=== PATIENT | female | born 1995 | race Asian ===

== ENCOUNTER → 2018-07-30 | Outpatient (REF) | payer OTHER | LOC: M SFHCLERA 17:38 | PROVIDERS: ATTEND Nurse Practitioner Family | DX: R53.81 Other malaise (principal) ==

== ENCOUNTER 2018-11-07 10:56 | Emergency (ER) | payer OTHER ==
[~2018-11-07] VITALS: Ht 152.4 cm; Wt 51.4 kg
[2018-11-07] MEDS ORDERED: PRENTAB53 PO (11:01)
[2018-11-07] MEDS ORDERED: PROAAER10 INH (11:03)
[2018-11-07 12:32] LABS: BASO # 0.1 10^3/uL (0.0-0.2); BASO % 0.5 % (0.0-1.0); EOS # 0.5 10^3/uL (0.0-0.50); HEMATOCRIT 34.2 % (36.0-47.0); HEMOGLOBIN 11.3 g/dl (12.0-15.5); LYMPH # 1.7 10^3/uL (1.5-6.5); LYMPH % 15.3 % (24.0-44.0); MEAN CORPUSCULAR HEMOGLOBIN 26.2 pg (27.0-33.0); MEAN CORPUSCULAR VOLUME 79.4 fl (80.0-96.0); MONO # 0.9 10^3/uL (0.0-0.8); MONO % 7.8 % (0.0-5.0); NEUTROPHILS # 7.7 10^3/uL (1.8-7.7); NEUTROPHILS % 70.9 % (36.0-66.0); PLATELET COUNT, AUTOMATED 227 10^3/uL (150-450); RED BLOOD COUNT 4.31 10^6/uL (4.00-5.40); WHITE BLOOD COUNT 10.9 10^3/uL (4.0-10.0)
[2018-11-07 13:43] LABS: ALBUMIN 3.5 GM/DL (3.2-5.2); ALT/SGPT 12 U/L (12-78); BILIRUBIN,DIRECT < 0.1 MG/DL (0.0-0.2); BILIRUBIN,TOTAL 0.2 MG/DL (0.2-1.0); BLOOD UREA NITROGEN 6 MG/DL (7-18); CARBON DIOXIDE LEVEL 25 MEQ/L (21-32); CHLORIDE LEVEL 108 MEQ/L (98-107); CREATININE FOR GFR 0.41 MG/DL (0.55-1.30); GLOMERULAR FILTRATION RATE > 60.0 (>60); GLUCOSE, FASTING 88 MG/DL (70-100); HCG, SERUM QUANTITATIVE 28208 MIU/ML; LIPASE 244 U/L (73-393); POTASSIUM SERUM 4.1 MEQ/L (3.5-5.1); SODIUM LEVEL 140 MEQ/L (136-145); TOTAL PROTEIN 6.7 GM/DL (6.4-8.2)
[2018-11-07 15:32] LABS: CHLAMYDIA DNA AMPLIFICATION NEGATIVE (NEGATIVE); GC DNA AMPLIFICATION NEGATIVE (NEGATIVE)
--- NOTE | 2018-11-09 16:02 | REP ---
First trimester, stat obstetric ultrasound for abdominal pain: There is a single intrauterine gestation in a vertex presentation. There is movement and cardiac activity. The heart rate is 163 beats per minute. The placenta is anterior. There is no placenta previa or abruptio. The placenta is grade zero. The amniotic fluid volume subjectively is normal. The cervix measures 4.0 cm length. The maternal adnexa and cul-de-sac are unremarkable. Gestational age by today's ultrasound is 14 weeks 1 day/[facility] 05/07/2019. Gestational age by LMP is 14 weeks 5 days/[facility] 05/03/2019. weight is 89 grams/0 pounds, 3 ounces. This is the 14th percentile for 14 weeks 5 days. Electronically Signed by Surya Atkins MD 11/07/2018 12:58 P
== END 2018-11-07 15:22 | disposition home or self-care (01) ==
LOC: M ED 10:56
DX: O26.892 Other specified pregnancy related conditions, second trimester (principal); O34.62 Maternal care for abnormality of vagina, second trimester; Z86.19 Personal history of other infectious and parasitic diseases; O99.512 Diseases of the respiratory system complicating pregnancy, second trimester; Z87.448 Personal history of other diseases of urinary system; Z3A.14 14 weeks gestation of pregnancy; Z79.899 Other long term (current) drug therapy; Z88.1 Allergy status to other antibiotic agents

== ENCOUNTER → 2018-12-06 | Outpatient (REF) | payer OTHER ==
[~2018-12-06] MED LIST: PRENTAB53 PO; PROAAER10 INH
== END ==
LOC: M SFHCLERA 10:54
PROVIDERS: ATTEND Physician Assistant
DX: L30.1 Dyshidrosis [pompholyx] (principal)